=== PATIENT | female | born 1985 | race Caucasian/White ===

== ENCOUNTER → 2021-04-22 | Outpatient (CLI) | payer OTHER ==
[~2021-04-22] MED LIST: TRAM50TA2 PO
[2021-04-22 12:17] LABS: BASOPHILS % (AUTO) 1 % (0-1); EOSINOPHILS % (AUTO) 1 % (1-7); LYMPHOCYTES % (AUTO) 35 % (22-44); MEAN CORPUSCULAR HEMOGLOBIN 28.2 pg (27.0-34.8); MEAN CORPUSCULAR HGB CONC 33.8 g/dL (32.4-35.8); MEAN PLATELET VOLUME 7.5 fL (7.4-10.4); MONOCYTES % (AUTO) 9 % (2-9); NEUTROPHILS % (AUTO) 54 % (42-75); PLATELET COUNT 325 x10^3/uL (130-400); RED BLOOD COUNT 5.11 x10^6/uL (3.82-5.3); RED CELL DISTRIBUTION WIDTH 13.9 % (9.6-15.2)
[2021-04-22 12:23] LABS: ANION GAP 5 mmol/L (5-15); CHLORIDE 110 mmol/L (98-107); CREATININE 0.72 mg/dL (0.55-1.02)
[2021-04-22 12:27] LABS: MICROSCOPIC AUTO
== END | disposition home or self-care (01) ==
LOC: STAR 11:17
PROVIDERS: ATTEND Urology
DX: Z01.812 Encounter for preprocedural laboratory examination (principal); N20.0 Calculus of kidney; Z20.822 Contact with and (suspected) exposure to COVID-19
CPT/HCPCS: 36415; 80048; 81001; 85025; 87086; U0003; U0005

== ENCOUNTER 2021-04-29 14:01 | Day surgery (SDC) | payer BC, OTHER ==
[~2021-04-29] VITALS: Ht 157.5 cm; Wt 121.4 kg
[2021-04-29] MEDS ORDERED: LACTATED RINGERS 1,000 ML IV SCH (14:30)
[2021-04-29] MEDS ORDERED: CHLORHEXIDINE 15 ML UDC PO ONE (14:30)
[2021-04-29] MEDS ORDERED: CHLORHEXIDINE 15 ML UDC ONE (14:46)
[2021-04-29 15:01] LABS: HCG UR SG 1.022 (1.003-1.030)
[2021-04-29] MEDS ORDERED: OMNIPAQUE 350 MG/ML, 50 ML BOTTLE ONE (15:36)
[2021-04-29] MEDS ORDERED: FENTANYL PF 250 MCG/5ML ONE (15:51)
[2021-04-29] MEDS ORDERED: MIDAZOLAM 1 MG/ML, 2ML ONE (15:51)
[2021-04-29] MEDS ORDERED: FENTANYL PF 100 MCG/2ML ONE ×2 (15:52→17:06)
[2021-04-29] MEDS ORDERED: ACETAMINOPHEN 325 MG TABLET PO PRN (16:00)
[2021-04-29] MEDS ORDERED: MEPERIDINE/PF 25MG/0.5ML IVPush PRN (16:00)
[2021-04-29] MEDS ORDERED: LABETALOL 5MG/ML, 20ML IV PRN (16:00)
[2021-04-29] MEDS ORDERED: HYDROmorphone 1 MG/ML, 1ML INJ IVPush PRN (16:00)
[2021-04-29] MEDS ORDERED: MIDAZOLAM 1 MG/ML, 2ML IV PRN (16:00)
[2021-04-29] MEDS ORDERED: PROMETHAZINE 25 MG/ML, 1ML IVPush PRN (16:00)
[2021-04-29] MEDS ORDERED: PROPOFOL 10 MG/ML, 20ML ONE (16:35)
[2021-04-29] MEDS ORDERED: LIDOCAINE-MPF 2% ,5ML ONE (16:35)
[2021-04-29] MEDS ORDERED: CEFAZOLIN 1,000 MG ONE (16:35)
[2021-04-29] MEDS ORDERED: DEXAMETHASONE 4 MG/ML, 1ML ONE (16:35)
[2021-04-29] MEDS ORDERED: ONDANSETRON 2MG/ML, 2ML ONE (16:35)
[2021-04-29] MEDS ORDERED: PROMETHAZINE 25 MG/ML, 1ML ONE (17:06)
[2021-04-29] MEDS ORDERED: OXYcodone 5 MG/5 ML ORAL.SOL UDC ONE (17:06)
[2021-04-29] MEDS ORDERED: ACETAMINOPHEN 650 MG/20.3 ML UDC ONE (17:06)
[2021-04-29] MEDS ORDERED: hydrALAzine 20 MG/ML, 1ML ONE (17:10)
[2021-04-29] MEDS: FENTANYL PF 100 MCG/2ML IV PRN ×2 (17:14→17:24)
[2021-04-29] MEDS: OXYcodone 5 MG/5 ML ORAL.SOL UDC PO PRN ×2 (17:30→17:52)
[2021-04-29] MEDS ORDERED: hydrALAzine 20 MG/ML, 1ML IV PRN (17:30)
[2021-04-29] MEDS ORDERED: KETOROLAC 30 MG/1 ML IVPush ONE ×2 (18:00→18:30)
== END 2021-04-29 19:05 | disposition home or self-care (01) ==
LOC: OR 14:01
PROVIDERS: ATTEND Urology
DX: N20.0 Calculus of kidney (principal); E66.01 Morbid (severe) obesity due to excess calories; Z79.899 Other long term (current) drug therapy; Z72.89 Other problems related to lifestyle; Z87.891 Personal history of nicotine dependence; Z98.890 Other specified postprocedural states; Z68.42 Body mass index [BMI] 45.0-49.9, adult
CPT/HCPCS: 52353; 74018; 81025; C1769; J0690; J1100; J1170; J1885; J2250; J2405; J2550; J2704; J3010; J7120; 76000; Q9967